=== PATIENT | male | born 1935 | race Caucasian/White ===

== ENCOUNTER 2018-11-24 15:40 | Inpatient (IN) | payer OTHER ==
[~2018-11-24] VITALS: Ht 167.6 cm; Wt 70.3 kg
[2018-11-24] MEDS ORDERED: ASPIR 8181 MG (16:43)
[2018-11-24] MEDS ORDERED: HYZAAR 100-12.1 EACH (16:43)
[2018-11-24] MEDS ORDERED: GABAPENTIN600 MG (16:44)
[2018-11-27] MEDS ORDERED: PANTOPRAZOLE SO40 MG PO (09:23)
== END 2018-11-27 12:59 | disposition home or self-care (01) | DRG 812 ==
LOC: ER 15:40 → ICU-2 19:56 → MEDJ 19:56
PROC: 30233N1 Transfusion of Nonautologous Red Blood Cells into Peripheral Vein, Percutaneous Approach (ICD-10-PCS; 2018-11-24)
PROC: BH4CZZZ Ultrasonography of Head and Neck (ICD-10-PCS; 2018-11-24)
PROC: BW28ZZZ Computerized Tomography (CT Scan) of Head (ICD-10-PCS; 2018-11-24)
PROC: 0DJ08ZZ Inspection of Upper Intestinal Tract, Via Natural or Artificial Opening Endoscopic (ICD-10-PCS; principal; 2018-11-26)
DX: D62 Acute posthemorrhagic anemia (principal); K62.5 Hemorrhage of anus and rectum; R55 Syncope and collapse; K26.7 Chronic duodenal ulcer without hemorrhage or perforation

== ENCOUNTER 2020-07-12 13:54 | Emergency (ER) | payer OTHER ==
[~2020-07-12] VITALS: Ht 162.6 cm; Wt 71.2 kg
[~2020-07-12 13:54] MED LIST: ASPIR 8181 MG; GABAPENTIN600 MG; HYZAAR 100-12.1 EACH; PANTOPRAZOLE SO40 MG PO
[2020-07-12] MEDS ORDERED: ZOCOR20 MG (14:19)
[2020-07-12] MEDS ORDERED: TOPROL XL50 M1 (14:19)
[2020-07-12] MEDS ORDERED: GABAPENTIN 800MG (14:19)
[2020-07-12] MEDS ORDERED: XARELTO20 MG (14:20)
[2020-07-12] MEDS ORDERED: ALPHA LIPOIC A600 MG (14:21)
[2020-07-12] MEDS ORDERED: AZOR 10-20 MG1 EACH (14:21)
[2020-07-12] MEDS ORDERED: [UNRECOGNIZED DRUG - OTHER] (14:22)
== END 2020-07-12 21:55 | disposition home or self-care (01) ==
LOC: ER 13:54
DX: S00.83XA Contusion of other part of head, initial encounter (principal); W18.39XA Other fall on same level, initial encounter; Y93.89 Activity, other specified; Y92.098 Other place in other non-institutional residence as the place of occurrence of the external cause; Y99.8 Other external cause status

== ENCOUNTER 2022-02-18 22:20 | Emergency (ER) | payer OTHER ==
[~2022-02-18] VITALS: Ht 165.1 cm; Wt 72.6 kg
[~2022-02-18 22:20] MED LIST changes: +ALPHA LIPOIC A600 MG; +AZOR 10-20 MG1 EACH; +GABAPENTIN 800MG; +TOPROL XL50 M1; +XARELTO20 MG; +ZOCOR20 MG; +[UNRECOGNIZED DRUG - OTHER]
[2022-02-18] MEDS ORDERED: LEVOTHYROXINE25 MCG (23:15)
[2022-02-18] MEDS ORDERED: ALDACTONE25 MG (23:17)
[2022-02-18] MEDS ORDERED: ZESTRIL5 MG (23:17)
[2022-02-19] MEDS ORDERED: ZYNCOF 20-400120 ML PO (03:12)
== END 2022-02-19 04:11 ==
LOC: ER 22:20
DX: I10 Essential (primary) hypertension (principal)

== ENCOUNTER 2025-06-05 04:45 | Emergency (ER) | payer OTHER ==
[~2025-06-05] VITALS: Ht 165.1 cm; Wt 65.8 kg
[~2025-06-05 04:45] MED LIST changes: +ALDACTONE25 MG; +LEVOTHYROXINE25 MCG; +ZESTRIL5 MG; +ZYNCOF 20-400120 ML PO
[2025-06-05] MEDS ORDERED: AVAPRO150 MG (04:54)
[2025-06-05] MEDS ORDERED: ACETAMINOPHEN 500 MG GEL..CAP PO STA (05:23)
[2025-06-05] MEDS ORDERED: 0.9 % SODIUM CHLORIDE 500 ML IV ONE (05:30)
[2025-06-05 06:31] LABS: BASO % 0.7 % (0.1-1.2); EOS # 0.38 (0.04-0.54); EOS % 4.6 % (0.7-7.0); LYMPH # 2.28 (1.18-3.74); LYMPH % 27.4 % (19.3-53.1); MEAN PLATELET VOLUME 9.00 fl (9.4-12.4); MONO # 0.98 (0.24-0.82); MONO % 11.8 % (4.7-12.5); NEUT # 4.61 (1.56-6.13); NEUT % 55.3 % (34.0-71.1); RED CELL DISTRIBUTION WIDTH 12.8 % (11.6-14.4)
[2025-06-05 06:40] LABS: ALT/SGPT 30.0 U/L (12-78); AST/SGOT 27.0 U/L (15-37); BILIRUBIN TOTAL 0.26 mg/dL (0.3-1.2); BUN CREA RATIO 14.0 (7.0-25.0); CREATININE SERUM 1.25 mg/dL (0.70-1.30); GFR 54.38; GLOBULINA 4.5 G/DL (2.4-3.5); GLUCOSE FASTING 94.0 mg/dL (65-100); OSMOLALITY SERUM 261.0 MOSM/KG (275-295)
[2025-06-05 11:07] LABS: URINE APPEARANCE Clear; URINE BILIRRUBIN Negative (NEGATIVE); URINE BLOOD Trace; URINE COLOR Yellow; URINE GLUCOSE Negative (NEGATIVE); URINE KETONE Negative (NEGATIVE); URINE LEUKOCYTE Negative; URINE NITRATE Negative; URINE PROTEIN Trace (NEGATIVE); URINE UROBILINOGEN 0.2 E.U./dl
[2025-06-05 11:17] LABS: URINE BACTERIA 13.1 uL (0.0-1933); URINE RBC 3.6 uL (0.0-20.8)
[2025-06-05 11:28] LABS: URINE CAST 1.02 uL (0.0-1.40); URINE EPITHELIAL CELLS 0.1 uL (0.0-38.8); URINE WBC 0.7 uL (0.0-23.2)
== END 2025-06-05 13:08 | disposition home or self-care (01) ==
LOC: ER 04:45
PROVIDERS: General Practice
DX: E86.0 Dehydration (principal); R53.1 Weakness; I10 Essential (primary) hypertension
CPT/HCPCS: 36415; 70450; 93005; 96365; 96366; 99284; J7042